=== PATIENT | male | born 1985 | race Caucasian/White ===

== ENCOUNTER 2018-12-14 08:56 | Emergency (ER) | payer OTHER ==
[~2018-12-14] VITALS: Ht 182.9 cm; Wt 79.5 kg
[2018-12-14] MEDS ORDERED: IBUP-1022 PO (09:06)
[2018-12-14] MEDS ORDERED: ONDANSETRON 4 MG ORAL DISINTEGRATING TAB (Q0162 PER 1MG) PO ONE (09:15)
[2018-12-14] MEDS ORDERED: ZOFR4TAB16 PO (10:02)
[2018-12-14 10:09] VITALS: BP 114/55
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
== END 2018-12-14 10:12 | disposition home or self-care (01) ==
LOC: M ED 08:56 → EDBD 08:56 → M ED 10:12
DX: S06.0X0A Concussion without loss of consciousness, initial encounter (principal); S50.01XA Contusion of right elbow, initial encounter; S01.511A Laceration without foreign body of lip, initial encounter; R11.10 Vomiting, unspecified; W50.0XXA Accidental hit or strike by another person, initial encounter; Y92.149 Unspecified place in prison as the place of occurrence of the external cause; Y93.9 Activity, unspecified; Y99.9 Unspecified external cause status; Z88.0 Allergy status to penicillin; Z91.013 Allergy to seafood
CPT/HCPCS: 70450; 72125; 73080; 99284; Q0162